=== PATIENT | female | born 1945 | race Two or more races ===

== ENCOUNTER 2019-04-14 10:22 | Emergency (ER) | payer MEDICARE, BC ==
[~2019-04-14] VITALS: Ht 165.1 cm; Wt 74.8 kg
[2019-04-14 10:19] VITALS: BP 161/74
[2019-04-14] MEDS ORDERED: TYLENOL EXTRA500 MG ORAL (10:26)
[2019-04-14] MEDS ORDERED: CODEINE 30MG TA30 MG ORAL (10:26)
[2019-04-14] MEDS ORDERED: METFORMIN ER G500 MG PO (10:26)
[2019-04-14] MEDS ORDERED: ALEVE220 M2 PO (10:26)
--- NOTE | 2019-04-14 10:32 | NUR ---
ED Nurse Note: Patient was brought in by ambulance from home, c/o L leg and L hip pain started a few days ago worsening last night and this morning. Patient is accompanied by .
[2019-04-14] MEDS ORDERED: Morphine Sulfate 4mg/ml Inj (IV USE ONLY) IVP ONE (10:45)
--- NOTE | 2019-04-14 10:49 | Emergency Room Report ---
History of Present Illness General Chief Complaint: Pain Source: Patient Present Illness HPI Is a 73-year-old female presented after increased left lower extremity pain. 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 Patient is currently on oral chemotherapy. She had recent spinal stenosis surgery for L3-L4. Patient had a decompressive laminectomy performed. Patient reports having increased activity over the past few days. She states that she had been having a burning sensation to the lateral left thigh. As well as to the lateral portion of her left leg. She had recently discontinued taking codeine as well as gabapentin. She had previously been taking other medications for pain and had been having difficulty ambulating without a walker. She had prior negative CT of the chest at [facility] postoperatively.Patient had a recent negative DVT ultrasound after procedure. Allergies: Coded Allergies: ETHYLENEDIAMINE (Verified Allergy, Unknown, 04/14/19) FORMALDEHYDE (Verified Allergy, Unknown, 04/14/19) LISINOPRIL (Verified Allergy, Unknown, 04/14/19) Patient History Past Medical History: see triage record Reviewed Nursing Documentation: PMH: Agreed; PSxH: Agreed Nursing Documentation-PMH Hx Diabetes: Yes - SCIATICA Hx Cancer: Yes - L BREAST MASTECTOMY (01/2019) Review of Systems All Other Systems: negative except mentioned in HPI Physical Exam Vital Signs Date Time Temp Pulse Resp B/P (MAP) Pulse Ox O2 Delivery O2 Flow Rate FiO2 04/14/19 10:12 97.3 102 24 165/93 (117) 97 Room Air Sp02 EP Interpretation: reviewed, normal General Appearance: normal inspection, well appearing, no apparent distress, alert, GCS 15, obese Head: atraumatic ENT: normal ENT inspection, hearing grossly normal, normal voice Neck: normal inspection, full range of motion, supple, no bony tend Respiratory: normal inspection, lungs clear, normal breath sounds, no respiratory distress, no retraction, no wheezing Cardiovascular #1: regular rate, rhythm, no edema Gastrointestinal: normal inspection, normal bowel sounds, non tender, soft, no guarding, no hernia Genitourinary: no CVA tenderness Musculoskeletal: normal inspection, back normal, normal range of motion Neurologic: normal inspection, alert, oriented x3, responsive, squirrel man III-XII nml as tested, speech normal, other - left leg hypersensitivity Psychiatric: normal inspection, judgement/insight normal, mood/affect normal Medical Decision Making Diagnostic Impression: Primary Impression: Peripheral neuropathy Last Vital Signs Date Time Temp Pulse Resp B/P (MAP) Pulse Ox O2 Delivery O2 Flow Rate FiO2 04/14/19 10:19 97.3 86 24 161/74 100 Room Air Willian Coyle MD Apr 14, 2019 10:48
[2019-04-14 11:04] LABS: BASOPHILS % (AUTO) 1.2 % (0.0-2.0); EOSINOPHILS % (AUTO) 0.2 % (0.0-3.0); HEMATOCRIT 44.4 % (37.0-47.0); HEMOGLOBIN 14.1 G/DL (12.0-16.0); LYMPHOCYTES % (AUTO) 31.2 % (20.0-45.0); MEAN CORPUSCULAR VOLUME 87 FL (80-99); MONOCYTES % (AUTO) 6.8 % (1.0-10.0); NEUTROPHILS % (AUTO) 60.6 % (45.0-75.0); PLATELET COUNT 316 K/UL (150-450); RED BLOOD COUNT 5.11 M/UL (4.20-5.40); WHITE BLOOD COUNT 8.6 K/UL (4.8-10.8)
--- NOTE | 2019-04-14 11:04 | NUR ---
ED Nurse Note: Xray at bedside; patient in bed resting.
[2019-04-14 11:13] LABS: ANION GAP 14 mmol/L (5-15); BLOOD UREA NITROGEN 13 mg/dL (7-18); CALCIUM 9.9 MG/DL (8.5-10.1); CARBON DIOXIDE 25 MMOL/L (21-32); CHLORIDE 98 MMOL/L (98-107); CREATININE 0.8 MG/DL (0.55-1.30); POTASSIUM 3.9 MMOL/L (3.5-5.1); SODIUM 136 MMOL/L (136-145)
[2019-04-14 11:25] LABS: ALANINE AMINOTRANSFERASE 24 U/L (12-78); ALBUMIN 4.7 G/DL (3.4-5.0); ALBUMIN/GLOBULIN RATIO 1.7 (1.0-2.7); ALKALINE PHOSPHATASE 109 U/L (46-116); ASPARTATE AMINO TRANSFERASE 25 U/L (15-37); BILIRUBIN,TOTAL 0.8 MG/DL (0.2-1.0)
--- NOTE | 2019-04-14 11:33 | Diagnostic Imaging Report ---
Indication: Dyspnea Comparison: None A single view chest radiograph was obtained. Findings: No definite infiltrate or pulmonary vascular congestion identified. The heart is enlarged. The aorta is mildly enlarged consistent with atherosclerotic vascular disease. The bones are osteopenic. Impression: No acute disease
[2019-04-14 11:54] VITALS: BP 165/81
--- NOTE | 2019-04-14 12:11 | NUR ---
ED Nurse Note: Pt states she needs to use restroom, offered bedpan, pt refused. Educated on risk of falls, verbalized understanding. Able to ambulate with assistance in stable condition.
--- NOTE | 2019-04-14 12:23 | NUR ---
ED Nurse Note: Patient back in bed, in stable condition. Placed back on cardiac catheterization technologist.
[2019-04-14 13:26] VITALS: BP 152/81
--- NOTE | 2019-04-14 13:26 | NUR ---
ED Nurse Note: Pt still c/o pain; Dr Coyle at bedside.
[2019-04-14] MEDS ORDERED: Dexamethasone 4mg/ml vial IVP ONE (13:45)
[2019-04-14] MEDS ORDERED: TRAMADOL HCL50 MG ORAL (13:59)
[2019-04-14] MEDS ORDERED: GABAPENTIN300 MG ORAL (13:59)
[2019-04-14] MEDS ORDERED: Morphine Sulfate 2mg/ml Inj(IV/IM USE ONLY) IVP ONE (14:15)
[2019-04-14] MEDS ORDERED: Ketorolac 30mg Inj IV ONE (14:15)
[2019-04-14 15:43] VITALS: BP 150/79
--- NOTE | 2019-04-14 15:47 | NUR ---
ER DISCHARGE NOTE: Patient is cleared to be discharged per ERMD, pt is aox4,with stable vital signs. pt was given d instructions, pt was able to verbalize understanding, pt id band and iv site removed without complications. pt took all belongings. pt was wheeled out via w/c accompanied by echo technician and spouse.
== END 2019-04-14 15:47 | disposition home or self-care (01) ==
LOC: EDBD 10:22 → EMR 10:44 → CANBEDREQ 15:20 → EMR 15:47
DX: E11.42 Type 2 diabetes mellitus with diabetic polyneuropathy (principal); E66.9 Obesity, unspecified; Z85.3 Personal history of malignant neoplasm of breast; Z88.8 Allergy status to other drugs, medicaments and biological substances; Z90.12 Acquired absence of left breast and nipple; Z68.27 Body mass index [BMI] 27.0-27.9, adult
CPT/HCPCS: 36415; 36600; 71045; 80053; 82803; 83690; 83880; 84484; 85025; 96374; 96375; 96376; 99284; J1100; J1885; J2270; J2405